=== PATIENT | male | born 1995 | race Caucasian/White ===

== ENCOUNTER 2020-08-10 14:19 | Emergency (ER) | payer OTHER ==
[~2020-08-10] VITALS: Ht 180.3 cm; Wt 84.0 kg
--- NOTE | 2020-08-10 14:35 | NUR ---
Assumed care of patient. C/O dental pain and cracked teeth. Provided with blanket. No other needs at this time.
[2020-08-10] MEDS ORDERED: ONDANSETRON 2MG/ML, 2ML ONE (14:59)
[2020-08-10] MEDS ORDERED: SODIUM CHLORIDE FLUSH 10ML SYR IVF ONE (15:00)
[2020-08-10] MEDS ORDERED: ACETAMINOPHEN 500 MG TABLET ONE (15:00)
[2020-08-10] MEDS ORDERED: ACETAMINOPHEN 500 MG TABLET PO ONE (15:00)
[2020-08-10] MEDS ORDERED: IBUPROFEN 800 MG TABLET PO ONE (15:00)
[2020-08-10] MEDS ORDERED: ONDANSETRON 2MG/ML, 2ML IVPush ONE (15:00)
[2020-08-10] MEDS ORDERED: MORPHINE SULFATE 4 MG/ML, 1ML IV PRN (15:00)
[2020-08-10] MEDS ORDERED: SODIUM CHLORIDE 0.9% 1,000ML IVBOLUS ONE (15:00)
[2020-08-10] MEDS ORDERED: MORPHINE SULFATE 4 MG/ML, 1ML ONE (15:00)
--- NOTE | 2020-08-10 15:04 | NUR ---
IV started and labs drawn. Medicated per eMAR. No other needs.
[2020-08-10 15:23] LABS: BASOPHILS % (AUTO) 0 % (0-1); EOSINOPHILS % (AUTO) 0 % (1-7); LYMPHOCYTES % (AUTO) 9 % (22-44); MEAN CORPUSCULAR HEMOGLOBIN 29.3 pg (27.5-34.5); MEAN CORPUSCULAR HGB CONC 33.3 g/dL (33.2-36.2); MEAN PLATELET VOLUME 7.7 fL (7.4-10.4); MONOCYTES % (AUTO) 9 % (2-9); NEUTROPHILS % (AUTO) 82 % (42-75); PLATELET COUNT 218 x10^3/uL (130-400); RED BLOOD COUNT 5.16 x10^6/uL (4.38-5.82); RED CELL DISTRIBUTION WIDTH 15.6 % (9.4-14.8)
[2020-08-10 15:26] LABS: MD NO
[2020-08-10 15:33] LABS: ALANINE AMINOTRANSFERASE 42 U/L (12-78); ALBUMIN 3.9 g/dL (3.4-5.0); ANION GAP 9 mmol/L (5-15); CALCIUM 8.4 mg/dL (8.5-10.1); CHLORIDE 104 mmol/L (98-107); CREATININE 1.16 mg/dL (0.7-1.3)
[2020-08-10 15:35] LABS: ALKALINE PHOSPHATASE 66 U/L (45-117); BILIRUBIN,TOTAL 0.2 mg/dL (0.2-1.0); TOTAL PROTEIN 7.3 g/dL (6.4-8.2)
[2020-08-10] MEDS ORDERED: AMPICILLIN/SULBACTAM 3 GM in SODIUM CHLORIDE 0.9% 100 ML IV ONE (16:00)
--- NOTE | 2020-08-10 16:13 | NUR ---
BREAK RN: NS BOLUS COMPLETED, STOP TIME NOTED. IV ANTIBIOTIC STARTED AND INFUSING W/O DIFFICULTY. VSS ALTHOUGH TEMP 101.8, REMOVED PTS ROBE AND STOCKING CAMP. CALL LIGHT W/I REACH.
[2020-08-10 17:15] VITALS: BP 101/47
--- NOTE | 2020-08-10 17:20 | NUR ---
Patient/Caregiver given discharge instructions and they have confirmed that they understand the instructions. Patient ambulatory with steady gait.
== END 2020-08-10 17:23 | disposition home or self-care (01) ==
LOC: ED 17:00
DX: K08.89 Other specified disorders of teeth and supporting structures (principal); B34.9 Viral infection, unspecified; Z20.822 Contact with and (suspected) exposure to COVID-19; R50.9 Fever, unspecified
CPT/HCPCS: 36415; 80053; 82728; 83615; 85025; 87635; 96361; 96365; 96375; 99284; J0295; J2270; J2405; J7030